=== PATIENT | male | born 1990 | race Caucasian/White ===

== ENCOUNTER 2021-10-24 04:11 | Day surgery (SDC) | payer OTHER ==
[2021-10-22 09:13] VITALS: BMI 34.4
[2021-10-24] MEDS ORDERED: PROPOFOL 20 ML ONE ×2 (12:51)
[2021-10-24] MEDS ORDERED: ROCURONIUM BROMIDE 50 MG/5 ML SYRINGE ONE (12:52)
[2021-10-24] MEDS ORDERED: MIDAZOLAM HCL 2 MG/2 ML SINGLE DOSE VIAL ONE ×2 (12:53)
[2021-10-24] MEDS ORDERED: ceFAZolin SODIUM 1 GM VIAL IVPB ONE (13:36)
[2021-10-24] MEDS ORDERED: DEXAMETHASONE SOD PHOSPHATE 4 MG/1 ML VIAL ONE (13:38)
[2021-10-24] MEDS ORDERED: ceFAZolin SODIUM 1 GM VIAL ONE (13:38)
[2021-10-24] MEDS ORDERED: NEOSTIGMINE METHYLSULFATE 0.5 MG/ML - 10 ML MDV ONE (14:04)
[2021-10-24] MEDS ORDERED: GLYCOPYRROLATE 0.2 MG/1 ML VIAL ONE (14:05)
[2021-10-24] MEDS ORDERED: ONDANSETRON 4 MG/2 ML VIAL IVPUSH PRN (14:47)
[2021-10-24] MEDS ORDERED: ACETAMINOPHEN 1000 MG/100 ML BAG IVPB ONE ×2 (14:47→14:53)
[2021-10-24] MEDS ORDERED: LACTATED RINGERS SOLUTION 1,000 ML IV SCH (15:00)
[2021-10-24] MEDS ORDERED: FENTANYL CITRATE/PF 50 MCG/ML VIAL ONE (15:25)
[2021-10-24 17:56] VITALS: BP 140/60; PULSE 88; TEMP 98.5
== END 2021-10-24 17:30 | disposition home or self-care (01) ==
LOC: JASU-SURG 04:11
PROVIDERS: ATTEND Otolaryngology
PROC: 0CTQXZZ Resection of Adenoids, External Approach (ICD-10-PCS; 2021-10-24)
PROC: 0CTPXZZ Resection of Tonsils, External Approach (ICD-10-PCS; principal; 2021-10-24 13:00)
DX: G47.33 Obstructive sleep apnea (adult) (pediatric) (principal); J35.3 Hypertrophy of tonsils with hypertrophy of adenoids
CPT/HCPCS: 94760